=== PATIENT | male | born 1995 | race Caucasian/White ===

== ENCOUNTER 2017-06-13 11:03 | Emergency (ER) | payer OTHER ==
[2014-12-05 06:04] VITALS: BMI 28.3
[~2017-06-13 11:03] MED LIST: KEPPRA1000 MG PO; MOBIC7.5 MG PO; NORCO 10/325 TA1 TA1 PO
[2017-07-14] MEDS ORDERED: IBUDONE 10-2001 TAB PO (08:23)
== END 2017-06-13 13:31 | disposition home or self-care (01) ==
LOC: D.ER 11:03
DX: S43.102A Unspecified dislocation of left acromioclavicular joint, initial encounter (principal); W17.89XA Other fall from one level to another, initial encounter; Y93.89 Activity, other specified; Y92.029 Unspecified place in mobile home as the place of occurrence of the external cause; G40.909 Epilepsy, unspecified, not intractable, without status epilepticus

== ENCOUNTER 2017-06-17 20:28 | Emergency (ER) | payer OTHER ==
[2014-12-05 06:04] VITALS: BMI 28.3
[2017-07-14] MEDS ORDERED: IBUDONE 10-2001 TAB PO (08:23)
== END 2017-06-17 22:35 | disposition home or self-care (01) ==
LOC: D.ER 20:28
DX: S43.102A Unspecified dislocation of left acromioclavicular joint, initial encounter (principal); V98.8XXA Other specified transport accidents, initial encounter; Y93.89 Activity, other specified; Y92.89 Other specified places as the place of occurrence of the external cause

== ENCOUNTER 2017-06-19 15:55 | Emergency (ER) | payer OTHER ==
[2014-12-05 06:04] VITALS: BMI 28.3
[2017-07-14] MEDS ORDERED: IBUDONE 10-2001 TAB PO (08:23)
== END 2017-06-19 17:24 | disposition home or self-care (01) ==
LOC: D.ER 15:55
DX: S70.01XA Contusion of right hip, initial encounter (principal); S70.02XA Contusion of left hip, initial encounter; W13.2XXA Fall from, out of or through roof, initial encounter; Y93.89 Activity, other specified; Y92.89 Other specified places as the place of occurrence of the external cause; S39.012A Strain of muscle, fascia and tendon of lower back, initial encounter

== ENCOUNTER 2017-07-01 09:17 | Day surgery (SDC) | payer OTHER ==
[2017-07-01 10:06] VITALS: BP 131/72; BMI 28.9
[2017-07-01] MEDS ORDERED: DURICEF500 MG PO (15:17)
[2017-07-01] MEDS ORDERED: PERCOCET 5-3251 TAB PO (15:17)
--- NOTE | 2017-07-01 16:54 | NUR ---
IV DC WITH CATHER TIP INTACT
--- NOTE | 2017-07-02 16:42 | OP ---
PATIENT NAME: MICHELE ALANIZ MEDICAL RECORD: [id number] :95 LOCATION:[facility] ADMISSION DATE: SURGEON: RONALDO LALA DO DATE OF OPERATION: 07/01/2017 PROCEDURE PERFORMED: Left distal clavicle open reduction and internal fixation with coracoclavicular ligament reconstruction. PREOPERATIVE DIAGNOSIS: Distal clavicle fracture with AC joint separation. POSTOPERATIVE DIAGNOSIS: Distal clavicle fracture with AC joint separation. INDICATIONS: Mr. 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 When he had this, he went to the ER and had x-rays. He was seen in the office and we did a trial of a week with nonoperative treatment, but his clavicle kept rising superiorly and he had discomfort from it. I informed him that we could leave it and deal with the pain and deformity and he said that he wanted it fixed so he can get back to work in a few months. I then obliged him to this as it was his choice. He was informed of risks and benefits of the procedure and decided to proceed forward with it. Once this was done, he was verbally consented in the office. DESCRIPTION OF PROCEDURE: The patient was given a block in the preoperative area by anesthesia and then taken back to the operative suite, laid in the supine position, and put in the beach chair position. He was put in the beach chair position after being intubated and given Ancef. He does have PENICILLIN ALLERGY; however, had no reaction to the Ancef. This was done and the time-out was then performed. Everyone was in agreement with correct site, side, patient, and procedure. The left arm was then prepped and draped. The entire clavicle was prepped and draped. Once this was done, an incision was made vertically along the skin lines over the coracoid and the distal clavicle. Then, the skin was undermined in order to be able to retract the skin far enough to put the plate on. Dissection was made down also to the coracoid Accucinch anchor was placed at the base of the coracoid. Once this was done, the plate was then placed on the clavicle under fluoro and the distal clavicle piece that had been fractured was deemed to be reduced. Plate and screws were put in to fit the distal part of the plate. There were 4 screws put distally, 2 at the very distal aspect and then 2 more medial to that. We then placed 2 screws medially on the plate. They had good fixation. Then, the sutures and the anchor put in the coracoid. A drill was holed in the third most medial hole and the sutures were brought through that hole using suture passer. Once this was done, pressure was put on the distal clavicle over the plate to reduce the clavicle itself and the sutures were tied down with the button into the plate. X-rays were taken and seemed to be in satisfactory position, certainly better than he had preoperatively. Then, the wound was irrigated. The fascia over the clavicle was closed using #0 Vicryl in a [id number] fashion and then the skin was closed with 2-0 Vicryl in inverted interrupted fashion. Prineo Dermabond was placed over the skin. Estimated blood loss approximately 50 mL. The patient was awakened and taken to recovery room in stable condition. TRANSINT:[id number] Voice Confirmation ID: [id number] DOCUMENT ID: [id number] OPERATIVE REPORT [id number] MICHELE ALANIZ MICHAEL D, DO at 1642 CC: [id number] DICTATION DATE: 07/01/17 1516 SAT MATH TUTOR: 07/01/17 1633 [facility] 07/01/[address] [facility] [address] [place] [address]
[2017-07-14] MEDS ORDERED: IBUDONE 10-2001 TAB PO (08:23)
== END 2017-07-01 17:15 | disposition home or self-care (01) ==
LOC: D.OPS 09:17 → D.PAN 10:45 → D.OPS 10:45 → D.PAN 12:30 → D.OPS 12:50
DX: S42.002A Fracture of unspecified part of left clavicle, initial encounter for closed fracture (principal); W19.XXXA Unspecified fall, initial encounter; S43.102A Unspecified dislocation of left acromioclavicular joint, initial encounter

== ENCOUNTER 2017-07-03 17:59 | Emergency (ER) | payer OTHER ==
[~2017-07-03 17:59] MED LIST changes: +DURICEF500 MG PO; +PERCOCET 5-3251 TAB PO
[2017-07-14] MEDS ORDERED: IBUDONE 10-2001 TAB PO (08:23)
== END 2017-07-03 21:35 | disposition home or self-care (01) ==
LOC: D.ER 17:59
DX: G89.18 Other acute postprocedural pain (principal); Z76.0 Encounter for issue of repeat prescription; L29.9 Pruritus, unspecified

== ENCOUNTER 2017-07-15 06:07 | Day surgery (SDC) | payer OTHER ==
[~2017-07-15 06:07] MED LIST changes: +IBUDONE 10-2001 TAB PO
[2017-07-15 07:25] VITALS: BMI 28.3
[2017-07-15] MEDS ORDERED: IBUDONE 10-2001 TAB PO (12:11)
[2017-07-15] MEDS ORDERED: BACTRIM DS TABL1 TAB PO (12:11)
--- NOTE | 2017-07-15 12:54 | NUR ---
VOICED TO ANESTHESIA THAT PT WAS STILL C/O PAIN "10/10" ON NUMERIC SCALE. AND 2MG OF DILUAUDID HAD ALREADY BEEN GIVEN. NEW V.O TO GIVE 1MG IV OF DILAUDID. V.O.R.B
--- NOTE | 2017-07-15 19:54 | OP ---
PATIENT NAME: MICHELE WATTS MEDICAL RECORD: [id number] :95 LOCATION:[facility] ADMISSION DATE: SURGEON: SCOT LALA DO DATE OF OPERATION: 07/15/2017 PROCEDURE PERFORMED: Revision left coracoclavicular ligament reconstruction with a clavicle ORIF. PREOPERATIVE DIAGNOSIS: Failed AC joint reconstruction with a coracoclavicular ligament reconstruction. POSTOPERATIVE DIAGNOSIS: Failed AC joint reconstruction with a coracoclavicular ligament reconstruction. INDICATIONS: Mr. Watts is a 21-year-old male who had his distal clavicle fixed a couple of weeks ago as well as coracoclavicular ligament reconstruction. A couple of days after surgery, he felt a pop and he had popped the sutures that were repairing that ligament. He was seen in the office and scheduled for the surgery today. He said he can tolerate the pain of a deformity and he has consented. Once this was done, he presented to the hospital today for this procedure. SURGEON: Scot Lala DO ANESTHESIA: General with a block. BLOOD LOSS: 100 mL. COMPLICATIONS: None. DESCRIPTION OF PROCEDURE: The patient was taken to the operative suite after giving a block by anesthesia, put in the supine position and given general anesthetic. The left arm was prepped and draped in sterile fashion. Timeout was performed, everyone is in agreeance to correct side, site, and patient. He was given 900 mg of clindamycin preoperatively. Once this was done, he was prepped and draped, old incision was used and extended slightly superiorly. Dissection was made down to the clavicle itself, the deltoid fascia and the trapezium fascia were elevated off of the clavicle and the plate was exposed. The old plate was taken off and then coracoid was carefully dissected out and the lockdown device gauge was used and taken around the base of the coracoid very carefully assuring that it was only around the base of the coracoid, no other structures. It was then fed posteriorly behind the clavicle and over the top of the clavicle, measurement was made to be 13. Once this was done, a new plate was put on the clavicle due to the thought of stress risers from the old plate, so the new plate span the old spot, first put 2 screws medially and then 3 screws laterally, 2 of those being locking screws in the most distal part. Once this was done, the lockdown device was passed around the coracoid and around the posterior end of the clavicle and the spot was marked to put the screw. The screw was then drilled in a lateral to medial and anterior to posterior direction, measured to be a 22. Once this was done, the reduction was made. Prior to this, a distal clavicle resection was to be done in order to get a better reduction of the clavicle. This was done prior to putting the plate on and once the lockdown device was put into place and measured and drilled, then the hole was tapped. After it was tapped, reduction was made and the [address] locking down the clavicle. X-rays were taken and confirmed OPERATIVE REPORT [id number] MICHELE WATTS RAY to be better reduction than he had prior. However, there was approximately 2-3 mm raise of the distal clavicle over the acromion. Once this was done, thorough irrigation was made. There were no bleeders noted and the fascia over the clavicle from the trapezium and the deltoid was closed with #2 Ethibond suture and once this was done, then the skin was closed with 3-0 Vicryl and 2-0 Vicryl in inverted interrupted fashion and then Prineo Dermabond was placed over the skin. The patient had Adaptic, 4 x 4s, ABD, and Medipore tape placed and he was placed in a sling with an abductor pillow. He was awakened and taken to recovery in stable condition. Estimated blood loss 100 mL. TRANSINT:[id number] Voice Confirmation ID: [id number] DOCUMENT ID: [id number] SCOT LALA DO at 1954 CC: [id number] DICTATION DATE: 07/15/17 1218 MINING DETAIL DRAFTSPERSON: 07/15/17 1300 [facility] [address] [place] [id number]
--- NOTE | 2017-07-15 21:06 | NUR ---
1440 IV DC WITH CATHER TIP INTACT
== END 2017-07-15 16:00 | disposition home or self-care (01) ==
LOC: D.OPS 06:07 → D.PAN 08:45 → D.OPS 08:45 → D.PAN 10:00 → D.OPS 16:00
DX: S42.032G Displaced fracture of lateral end of left clavicle, subsequent encounter for fracture with delayed healing (principal); Z01.812 Encounter for preprocedural laboratory examination

== ENCOUNTER 2017-07-16 10:28 | Emergency (ER) | payer OTHER ==
[2017-07-15 07:25] VITALS: BMI 28.3
[~2017-07-16 10:28] MED LIST changes: +BACTRIM DS TABL1 TAB PO
== END 2017-07-16 11:54 | disposition home or self-care (01) ==
LOC: D.ER 10:28
DX: G89.18 Other acute postprocedural pain (principal); F17.200 Nicotine dependence, unspecified, uncomplicated

== ENCOUNTER 2017-09-11 00:59 | Emergency (ER) | payer OTHER | END 2017-09-11 02:08 | disposition home or self-care (01) | LOC: D.ER 00:59 | DX: S43.402A Unspecified sprain of left shoulder joint, initial encounter (principal); X50.0XXA Overexertion from strenuous movement or load, initial encounter; Y93.89 Activity, other specified; Y92.019 Unspecified place in single-family (private) house as the place of occurrence of the external cause; Z98.890 Other specified postprocedural states ==